=== PATIENT | male | born 1995 | race Caucasian/White ===

== ENCOUNTER 2021-10-31 06:09 | Outpatient (REF) | payer OTHER, SELFPAY ==
[2021-10-31 07:03] LABS: IDNOW Serial# 9DD0AD1C
[2021-10-31 07:04] LABS: COVID-19 Test Negative (Negative)
== END 2021-10-31 06:10 | disposition home or self-care (01) ==
LOC: HO.LAB 06:09
PROVIDERS: Visit Provider Internal Medicine
DX: Z20.822 Contact with and (suspected) exposure to COVID-19 (principal)
CPT/HCPCS: 36415; 87635

== ENCOUNTER 2022-01-07 10:55 | Outpatient (REF) | payer OTHER, SELFPAY ==
[2022-01-07 11:13] LABS: COVID-19 Test Positive (Negative)
== END 2022-01-07 10:56 | disposition home or self-care (01) ==
LOC: HO.LAB 10:55
PROVIDERS: Visit Provider Internal Medicine
DX: Z20.822 Contact with and (suspected) exposure to COVID-19 (principal)
CPT/HCPCS: 87635